=== PATIENT | female | born 1950 | race Caucasian/White ===

== ENCOUNTER 2016-10-23 10:24 | Day surgery (SDC) | payer MEDICARE, OTHER ==
[~2016-10-23] VITALS: Ht 160 cm; Wt 51.0 kg
[~2016-10-23 10:24] MED LIST: 0.9% Sodium Chloride 1,000 ML IV SCH; CALC-952 PO; CHOL200025 PO; NIAC100045 PO; Sodium Chloride LOK Flush 10 mL Syringe IV PRN; fentaNYL-PF 50 mCg/mL 2 mL Inj IVPUSH PRN
[2016-10-23 10:43] VITALS: BP 179/79; PULSE 48; RESP 16; O2SAT 100
[2016-10-23 11:50] VITALS: BP 138/64; PULSE 52; RESP 16; O2SAT 95
[2016-10-23 12:00] VITALS: BP 130/61; PULSE 52; RESP 16; O2SAT 100
[2016-10-23 12:10] VITALS: BP 139/67; PULSE 48; RESP 15; O2SAT 100
[2016-10-23 12:20] VITALS: BP 138/69; PULSE 51; RESP 13; O2SAT 100
--- NOTE | 2016-10-23 23:30 | ENDO ---
[address] [address] ENDOSCOPY PROCEDURE PATIENT: NORMA TITUS : 1950 MR#: [id number] ADMIT: 10/23/2016 JOB ID: [id number] DATE OF PROCEDURE: 10/23/2016 PRIMARY PROVIDER: Oziel Trinidad MD. PROCEDURE: Esophagogastroduodenoscopy with biopsy. INDICATIONS: A 66-year-old female with a lengthy history of reflux. She additionally reports a sensation that there is constant phlegm in the mid to lower neck region. She has not really been responsive to PPI. Repeat EGD is thus pursued. EQUIPMENT: GIF-H180J. SEDATION: 1. Versed 7 mg. 2. Fentanyl 100 mcg. COMPLICATIONS: None identified. PROCEDURE INFORMATION: After the risks and benefits were explained, written and verbal informed consent was obtained. The patient was brought into the endoscopy suite and placed into the left lateral decubitus position. Sedation was achieved using the above-stated medications with the addition of oxygen via nasal cannula. The scope was introduced into the mouth through the bite block and advanced to the second portion of the duodenum. The scope was slowly withdrawn to carefully examine the mucosa for any defects or lesions. Retroflexed views were accomplished in the stomach. The stomach was decompressed. The scope was removed from the patient who tolerated the procedure reasonably well. FINDINGS: 1. Duodenum: No pathology identified from the bulb through to the second portion. 2. Stomach: There were some scattered erosive and even superficial ulcerative nodules through the antrum and prepyloric region. One of these areas was targeted for biopsy and submitted for histopathology/exclusion of H. pylori. Otherwise, no pathology appreciated in the stomach, including retroflexed views of the LES. 3. Esophagus: The squamocolumnar junction correlated nicely with the top of the gastric folds. The GEJ was at 39 cm from the incisors. There was a very subtle sliding hiatal hernia. No evidence of any acute erosive changes or any esophageal pathology throughout. ENDOSCOPIC DIAGNOSES: 1. Subtle sliding hiatal hernia. 2. Erosive gastropathy. RECOMMENDATIONS: 1. Await histopathology. 2. In order to clarify her symptoms and potentially correlate with pathologic reflux, 24 hour pH is pursued. 3. Follow up in my office subsequent to testing.
--- NOTE | 2016-10-24 15:02 | PATH ---
SURGICAL PATHOLOGY Attending Physician:Petey Jane CASE STATUS: Signed Out PATIENT NAME: NORMA TITUS PID: [id number] : 1950 DATE COLLECTED:10/23/2016 22:31 SPECIMEN: Gastric, Biopsy CLINICAL HISTORY: GERD 1). GASTRIC BIOPSY FINAL DIAGNOSIS: 1.GASTRIC BIOPSY: SUPERFICIAL FRAGMENT OF GASTRIC MUCOSA WITH FOVEOLAR HYPERPLASIA, NEGATIVE FOR ATYPIA (SEE COMMENT). Negative for evidence of Helicobacter on H&E stain. Negative for intestinal metaplasia. ICD10 K21.0 NOTE: Because of the superficial nature of this biopsy, it is difficult to ascertain the actual gastric site of the biopsy. If this is in the region of the antrum, then the changes would be consistent with reactive gastropathy. Otherwise, the changes could be consistent with a hyperplastic polyp. There is no atypia or evidence for malignancy. As part of a routine quality technician fiberglass, Dr. Karon Easton has also reviewed this case and agrees with the diagnosis. GROSS DESCRIPTION: Received in formalin, labeled with the patient' s name and "gastric BX", is one fragment of price, soft tissue measuring 0.1 x 0.1 x 0.1 cm. The fragment is totally submitted in cassette 1A. ([id number]) MICRO DESCRIPTION: See diagnosis. ICD-9 CODES: CPT CODES: 1: 12856 Electronically Signed Out Chauncey Mendoza MD [facility] Pathology [facility] [address], [place] [address] Technical component performed at [facility], [address] [place] [address] Ave[address], [address]
== END 2016-10-23 23:59 | disposition home or self-care (01) ==
LOC: END 10:24
PROVIDERS: ATTEND Internal Medicine Gastroenterology
DX: K21.9 Gastro-esophageal reflux disease without esophagitis (principal); K31.9 Disease of stomach and duodenum, unspecified; K44.9 Diaphragmatic hernia without obstruction or gangrene; E78.5 Hyperlipidemia, unspecified
CPT/HCPCS: 43239; 99153; G0500; J7030

== ENCOUNTER → 2016-11-28 | Day surgery (SDC) | payer MEDICARE, OTHER ==
[~2016-11-28] MED LIST changes: -0.9% Sodium Chloride 1,000 ML IV SCH; -CALC-952 PO; -CHOL200025 PO; +Lidocaine Topical 2% 30 mL Jelly ONE; -NIAC100045 PO; -Sodium Chloride LOK Flush 10 mL Syringe IV PRN; -fentaNYL-PF 50 mCg/mL 2 mL Inj IVPUSH PRN
== END | disposition home or self-care (01) ==
LOC: END 01:21
PROVIDERS: ATTEND Internal Medicine Gastroenterology
DX: K21.9 Gastro-esophageal reflux disease without esophagitis (principal)